=== PATIENT | male | born 1995 | race Caucasian/White ===

== ENCOUNTER 2021-10-02 06:12 | Observation (INO) ==
[2021-10-02 07:08] LABS: Basophils # (auto) 0.04 K/uL (0-0.2); Basophils % (auto) 0.7 %; Eosinophils # (auto) 0.03 K/uL (0-0.5); Eosinophils % (auto) 0.5 %; Hematocrit (blood only) 46.5 % (42-52); Hemoglobin 16.6 g/dL (14.0-18.0); Immature Granulocytes # (auto) 0.01 K/uL (0.00-0.02); Immature Granulocytes % (auto) 0.2 %; Lymphocytes # (auto) 1.25 K/uL (1.2-3.4); Lymphocytes % (auto) 20.5 %; Mean Corpuscular Hemoglobin 31.7 pg (25-34); Mean Corpuscular Hgb Conc 35.7 g/dL (32-36); Mean Corpuscular Volume 88.9 fL (80-100); Mean Platelet Volume 11.5 fL (7.4-10.4); Monocytes # (auto) 1.09 K/uL (0.11-0.59); Monocytes % (auto) 17.8 %; Neutrophils # (auto) 3.69 K/uL (1.4-6.5); Neutrophils % (auto) 60.3 %; Platelet Count 152 K/uL (130-400); RDW Coefficient of Variation 12.4 % (11.5-14.5); RDW Standard Deviation 40.6 fL (36.4-46.3); Red Blood Count 5.23 M/uL (4.7-6.1); White Blood Count 6.11 K/uL (4.8-10.8)
[2021-10-02 07:16] LABS: Alanine Aminotransferase 32 U/L (7-52); Albumin Globulin Ratio 1.3 (0.9-2); Albumin Level 4.4 gm/dl (3.4-5.0); Alkaline Phosphatase 61 U/L (34-104); Anion Gap 8 (3-11); Aspartate Aminotransferase 51 U/L (13-39); Bilirubin,Total 1.9 mg/dl (0.2-1.0); Blood Urea Nitrogen 13 mg/dl (6-23); Calcium 8.9 mg/dl (8.5-10.1); Carbon Dioxide 25 mmol/L (21-32); Chloride 103 mmol/L (98-107); Est GFR (African American) 120.7 ml/min; Est GFR (Non-African American) 104.1 ml/min; Globulin 3.3 gm/dl (2.5-4.0); Glucose 109 mg/dl (70-99(Fasting)); Potassium 3.9 mmol/L (3.5-5.1); Sodium 136 mmol/L (136-145); Total Protein 7.7 gm/dl (6.0-8.3)
[2021-10-02] MEDS ORDERED: KETOROLAC 30 MG/ML VIAL IV STA (07:19)
--- NOTE | 2021-10-02 07:25 | Emergency Department Note ---
Impression & Plan Acute myopericarditis, Elevated troponin, Precordial chest pain ED Provider Note CHIEF COMPLAINT: Left-sided chest pain x2 hours HISTORY OF PRESENT ILLNESS: Patient is a otherwise healthy 26-year-old male who presents emergency department for evaluation of chest pain. He has a remote history of myopericarditis diagnosed when he was 19, likely secondary to viral illness. He was seen and treated here at that time. Patient notes that Friday evening, less than 2 days ago, he developed a headache, sore throat, malaise, subjectively felt feverish and had chills. He did not check his temperature with a thermometer. He tried taking DayQuil and NyQuil. He did not get tested for COVID. Yesterday evening, he noticed some dull, mild left-sided chest discomfort that was on and off. At its worst he would have rated a 3/10. It did not keep him from sleeping. He woke up this morning at 0445, about 2 hours ago, with a more constant 5/10 chest pain that has not gone away. He has not ta lisa anything for his symptoms. He denies any cough or shortness of breath. No pain with deep breathing. He was concerned given his history of pericarditis, and thus presents the emergency department for evaluation. He is vaccinated against COVID x2 (01/2021 and 02/2021), did not receive a flu shot last fall. He denies any recent travel, no calf pain or swelling. Denies any tobacco/nicotine use, no drug use. Drinks about 8 beers a week. REVIEW OF SYSTEMS: Review of systems as per HPI. All other systems reviewed were negative. 10 systems reviewed. PMH: Electronic medical records are reviewed and summarized as above/below. See Problem List. He reports mild seasonal allergies that he uses a nasal spray for as needed. No surgeries. SOCIAL HISTORY: Patient is currently unemployed and lives at home with his family. Drinks 4 beers 2 times a week, denies tobacco/nicotine use, no drug use. PHYSICAL EXAM: Vital Signs: Reviewed Nurse's notes. CONSTITUTIONAL: Patient is a well-appearing 26-year-old male who is awake and alert and sitting upright on the gurney. Mom is at the bedside. EYES: Pupils equal, round, reactive to light and accommodation. EOMs intact without nystagmus. Sclera are anicteric. ENT: Tympanic membranes intact, with normal landmarks. External canals are clear. Oral and nasopharynx are clear. Mucous membranes are moist, no lesions, tongue and gums appear normal. CARDIOVASCULAR: Regular rate and rhythm, no murmur appreciated. Peripheral pulses easy to palpable. RESPIRATORY: Breath sounds equal and clear to auscultation without wheezes, rales, or rhonchi heard. Full and equal chest expansion without accessory muscle use or retractions. GI: Bowel sounds are present. Abdomen is soft, nontender, nondistended. No organomegaly. No pulsatile masses. No guarding or rebound. MUSCULOSKELETAL: Full range of motion of extremities x 4 with good strength. No cyanosis, edema, joint tenderness or swelling. No deformity. INTEGUMENTARY: No lesions or rash, normal skin turgor. NEUROLOGICAL: Alert, oriented, and cooperative. Cranial nerves, sensation and strength grossly intact. LYMPH: No lymphadenopathy. EMERGENCY DEPARTMENT COURSE: The patient was seen and assessed as above. Old records are reviewed, particularly his admission here for pericarditis in 2016. IV lock was initiated, laboratory studies were collected. CBC with differential, CMP, troponin, D-dimer, sed rate, CRP and COVID/flu swab were collected. EKG was obtained, chest x-ray was performed. He was observed on the director of pupil personnel program. He was treated with Toradol IV. Laboratory studies note a normal white count at 6100, no left shift, no bandemia. Sed rate is 14. Electrolytes are within normal limits. Total bilirubin 1.9, AST 51 remainder of transaminases are normal. C-reactive protein slightly elevated at 1.39. High sensitive troponin was elevated at 8561. D- dimer elevated at 610. COVID/influenza/RSV swab is negative. Chest x-ray was clear. EKG revealed a normal sinus rhythm at 91 bpm, with no ST segment changes. Given the elevated D-dimer, chest CT was obtained, was negative for PE. No pericardial effusion noted. Consultation was placed with Dr. Ramirez with [facility] cardiology. He agrees with admission for serial troponins, recommended colchicine, aspirin and an echocardiogram. Consultation was placed with the [facility] hospitalist service for inpatient care, patient was reviewed with Dr. Springer. Please refer to adm ission H&P for further information. Cardiac monitoring: An order was placed for continuous cardiac monitoring. The monitor shows a normal sinus rhythm in the 80s. Past Med/Surg History Medical History Environmental and seasonal allergies Myopericarditis Surgical History No history of previous surgery Family History Grandmother (Paternal) Rheumatic fever Heart valve disease Social History Smoking Status: Never smoker Second Hand Exposure: No; Do You Dip or Chew Tobacco: No; Hx Alcohol Use: Yes Alcohol type: beer Alcohol Intake Frequency: 2-3 x/Week Hx Substance Use: No Preferred Language: Frisian [employer] Server Required: No Beliefs That Will Affect Care: None Current Living Situation: Parent and Family Other Information That Helps Us Care for You: No Feels Safe at Home: Yes Safety Concerns: Feels Safe At This Time Allergies Allergies Allergy/AdvReac Type Severity Reaction Status Date / Time No Known Allergies Allergy Unverified 06/28/15 18:53 Home Meds Home Medications Medication Instructions Recorded Confirmed No Known Home Medications 10/02/21 10/02/21 Results & Data (ED) Vital Signs Vital Signs - 24 hr 10/02/21 06:16 10/02/21 06:18 10/02/21 06:19 Temperature 36.8 C Temperature Source Oral Pulse Rate 96 H 88 Pulse Rate from SpO2 Sensor 89 Respiratory Rate 18 17 Blood Pressure 124/80 124/80 Blood Pressure Mean 94 94 Pulse Oximetry 97 98 Oxygen Delivery Method Room Air Sepsis Recent Fever Within 48 Hours No Sepsis New/Unexplained Change in Mental Status N/A Sepsis Action Taken by Nursing No Action Required 10/02/21 06:20 10/02/21 06:30 10/02/21 06:54 Temperature Temperature Source Pulse Rate 83 Pulse Rate from SpO2 Sensor 83 Respiratory Rate 23 Blood Pressure Blood Pressure Mean Pulse Oximetry 97 97 99 Oxygen Delivery Method Room Air Room Air Sepsis Recent Fever Within 48 Hours Sepsis New/Unexplained Change in Mental Status Sepsis Action Taken by Nursing 10/02/21 06:58 10/02/21 07:00 10/02/21 07:30 Temperature Temperature Source Pulse Rate 92 H 83 83 Pulse Rate from SpO2 Sensor 92 H 82 81 Respiratory Rate 24 23 23 Blood Pressure 124/83 118/75 123/74 Blood Pressure Mean 96 89 90 Pulse Oximetry 98 98 97 Oxygen Delivery Method Sepsis Recent Fever Within 48 Hours Sepsis New/Unexplained Change in Mental Status Sepsis Action Taken by Nursing 10/02/21 08:00 10/02/21 08:27 10/02/21 08:30 Temperature Temperature Source Pulse Rate 79 84 77 Pulse Rate from SpO2 Sensor 78 Respiratory Rate 22 16 21 Blood Pressure 112/72 122/66 115/67 Blood Pressure Mean 85 84 83 Pulse Oximetry 96 Oxygen Delivery Method Sepsis Recent Fever Within 48 Hours Sepsis New/Unexplained Change in Mental Status Sepsis Action Taken by [facility] Medications Current Medication List: was personally reviewed by me Laboratory Data Attestation: I reviewed the patient's lab results. Result diagrams: 10/02/21 06:23 10/02/21 06:23 Lab Results 10/02/21 10/02/21 10/02/21 Range/Units 06:23 06:23 06:23 WBC 6.11 (4.8-10.8) K/uL RBC 5.23 (4.7-6.1) M/uL Hgb 16.6 (14.0-18.0) g/dL Hct 46.5 (42-52) % MCV 88.9 (80-100) fL MCH 31.7 (25-34) pg MCHC 35.7 (32-36) g/dL RDW Std Deviation 40.6 (36.4-46.3) fL RDW Coeff of Chidi 12.4 (11.5-14.5) % Plt Count 152 (130-400) K/uL MPV 11.5 H (7.4-10.4) fL Immature Gran % (Auto) 0.2 % Neut % (Auto) 60.3 % Lymph % (Auto) 20.5 % [place] % (Auto) 17.8 % Eos % (Auto) 0.5 % Baso % (Auto) 0.7 % Neut # (Auto) 3.69 (1.4-6.5) K/uL Lymph # (Auto) 1.25 (1.2-3.4) K/uL [place] # (Auto) 1.09 H (0.11-0.59) K/uL Eos # (Auto) 0.03 (0-0.5) K/uL Baso # (Auto) 0.04 (0-0.2) K/uL Immature Gran # (Auto) 0.01 (0.00-0.02) K/uL ESR (0-15) mm/hr D-Dimer 610 H* (0-500) ug/L FEU Sodium 136 (136-145) mmol/L Potassium 3.9 (3.5-5.1) mmol/L Chloride 103 (98-107) mmol/L Carbon Dioxide 25 (21-32) mmol/L Anion Gap 8 (3-11) BUN 13 (6-23) mg/dl Creatinine 1.00 (0.6-1.4) mg/dl Est Cr Clr Drug Dosing Not Reportable Est GFR ( Amer) 120.7 ml/min Est GFR (Non-Af Amer) 104.1 ml/min BUN/Creatinine Ratio 13.0 (10-20) Glucose 109 H (70-99(Fasting)) mg/dl Calcium 8.9 (8.5-10.1) mg/dl Total Bilirubin 1.9 H (0.2-1.0) mg/dl AST 51 H (13-39) U/L ALT 32 (7-52) U/L Alkaline Phosphatase 61 (34-104) U/L Troponin I High Sens 8561.0 H* (0-20) pg/ml C-Reactive Protein (0-0.5) mg/dl Total Protein 7.7 (6.0-8.3) gm/dl Albumin 4.4 (3.4-5.0) gm/dl Globulin 3.3 (2.5-4.0) gm/dl Albumin/Globulin Ratio 1.3 (0.9-2) SARS-CoV-2 (PCR) (Negative) Influenza Type A (PCR) (Neg) Influenza Type B (PCR) (Neg) RSV (RT-PCR) (Neg) 10/02/21 10/02/21 10/02/21 Range/Units 06:23 06:23 07:25 WBC (4.8-10.8) K/uL RBC (4.7-6.1) M/uL Hgb (14.0-18.0) g/dL Hct (42-52) % MCV (80-100) fL MCH (25-34) pg MCHC (32-36) g/dL RDW Std Deviation (36.4-46.3) fL RDW Coeff of Chidi (11.5-14.5) % Plt Count (130-400) K/uL MPV (7.4-10.4) fL Immature Gran % (Auto) % Neut % (Auto) % Lymph % (Auto) % [place] % (Auto) % Eos % (Auto) % Baso % (Auto) % Neut # (Auto) (1.4-6.5) K/uL Lymph # (Auto) (1.2-3.4) K/uL [place] # (Auto) (0.11-0.59) K/uL Eos # (Auto) (0-0.5) K/uL Baso # (Auto) (0-0.2) K/uL Immature Gran # (Auto) (0.00-0.02) K/uL ESR 14 (0-15) mm/hr D-Dimer (0-500) ug/L FEU Sodium (136-145) mmol/L Potassium (3.5-5.1) mmol/L Chloride (98-107) mmol/L Carbon Dioxide (21-32) mmol/L Anion Gap (3-11) BUN (6-23) mg/dl Creatinine (0.6-1.4) mg/dl Est Cr Clr Drug Dosing Est GFR ( Amer) ml/min Est GFR (Non-Af Amer) ml/min BUN/Creatinine Ratio (10-20) Glucose (70-99(Fasting)) mg/dl Calcium (8.5-10.1) mg/dl Total Bilirubin (0.2-1.0) mg/dl AST (13-39) U/L ALT (7-52) U/L Alkaline Phosphatase (34-104) U/L Troponin I High Sens (0-20) pg/ml C-Reactive Protein 1.39 H (0-0.5) mg/dl Total Protein (6.0-8.3) gm/dl Albumin (3.4-5.0) gm/dl Globulin (2.5-4.0) gm/dl Albumin/Globulin Ratio (0.9-2) SARS-CoV-2 (PCR) NEGATIVE (Negative) Influenza Type A (PCR) Negative (Neg) Influenza Type B (PCR) Negative (Neg) RSV (RT-PCR) Negative (Neg) Administered Medications Sodium Chloride (Nss 1000ml) 1,000 mls @ 80 mls/hr IV .[id number] YONG Stop: 10/03/21 00:21 Last Admin: 10/02/21 12:07 Dose: 80 mls/hr Documented by: [id number] Pantoprazole Sodium (Pantoprazole 40 Mg Tab) 40 mg PO QAM YONG Stop: 11/01/21 12:14 Last Admin: 10/02/21 12:29 Dose: Not Given Documented by: [id number] Discontinued Medications Sodium Chloride (Nss 1000ml) 1,000 mls @ 999 mls/hr IV .[id number] YONG Stop: 10/02/21 08:56 Last Infusion: 10/02/21 09:35 Dose: 0 mls/hr Documented by: [id number] Admin: 10/02/21 08:09 Dose: 999 mls/hr Documented by: [id number] Sodium Chloride (Nss 1000ml) 1,000 mls @ 250 mls/hr IV .Q4H YONG Stop: 11/01/21 07:59 Last Infusion: 10/02/21 12:07 Dose: 0 mls/hr Documented by: [id number] Admin: 10/02/21 10:25 Dose: 250 mls/hr Documented by: [id number] Ioversol (Optiray 320 125ml) 120 ml IV ONCE ONE Stop: 10/02/21 08:27 Last Admin: 10/02/21 08:26 Dose: 120 ml Documented by: [id number] Ketorolac Tromethamine (Ketorolac 30 Mg/Ml Vial) 30 mg IV NOW STA Stop: 10/02/21 07:20 Last Admin: 10/02/21 07:29 Dose: 30 mg Documented by: [id number] Imaging Data Attestation: I personally reviewed and interpreted this imaging study as follows: Radiologist's Impression: Chest X-Ray 10/02/21 06:54 XR chest 1V portable CLINICAL HISTORY: Atypical chest pain TECHNIQUE: Single frontal radiograph of the chest was obtained. Comparison: Comparison is made to chest radiograph 06/28/2015 FINDINGS: No lines and tubes are seen. The cardiomediastinal silhouette is normal. The lungs are clear. No evidence of pleural effusion or pneumothorax. IMPRESSION: No acute chest disease. ACT 112: Negative or not required by law. Electronically signed by: Virgilio Hickey M.D. 10/02/2021 7:31 AM Chest CTA 10/02/21 08:00 CT angio chest PE protocol CLINICAL HISTORY: Chest pain, elevated trop, hx of pericarditis TECHNIQUE: Multidetector row helical CT of the chest was performed with angiographic protocol. Coronal and sagittal reformations were obtained. Coronal and sagittal MIPS were obtained from the axial data set and were submitted for review. Automated dose lowering techniques and/or adjustment according to patient size were utilized for this exam. CT DOSE: 436.07 mGycm Comparison: None available at the time of this dictation. FINDINGS: Lungs and pleura: Normal. Heart and pericardium: Heart size is normal. No pericardial effusion. Vessels: No evidence of pulmonary embolism. Mediastinum and evert: Unremarkable. Chest wall and lower neck: Unremarkable. Abdomen: Unremarkable. Bones: Unremarkable. IMPRESSION: No evidence of pulmonary embolism. ACT 112: Negative or not required by law. Electronically signed by: Virgilio Hickey M.D. 10/02/2021 8:34 AM ECG Data Attestation: I personally reviewed and interpreted this ECG as follows: Indication: + chest pain Rate (beats per minute): 91 Rhythm: normal sinus ECG [place]: + Normal ECG ST segments: + Normal ST segments Comparison ECG Date: from () Change: the following changes noted (ST elevations resolved) Discharge Plan Visit Data Chief Complaint: Chest Pain Stated Complaint: CHEST PAIN ED Provider: Jack Haque ED Midlevel Provider: Jessica Perez Discharge Problem: Acute myopericarditis, Elevated troponin, Precordial chest pain Patient Disposition: Admitted As Inpatient Discharge Instructions Interventions: ED Discharge Assessment Last Done: 10/02/21 09:30
--- NOTE | 2021-10-02 07:32 | XRay Report ---
XR chest 1V portable CLINICAL HISTORY: Atypical chest pain TECHNIQUE: Single frontal radiograph of the chest was obtained. Comparison: Comparison is made to chest radiograph 06/28/2015 FINDINGS: No lines and tubes are seen. The cardiomediastinal silhouette is normal. The lungs are clear. No evid ence of pleural effusion or pneumothorax. IMPRESSION: No acute chest disease. ACT 112: Negative or not required by law. Electronically signed by: Virgilio Hickey M.D. 10/02/2021 7:31 AM
[2021-10-02 07:46] LABS: D Dimer 610 ug/L FEU (0-500)
[2021-10-02] MEDS ORDERED: SODIUM CHLORIDE 0.9% 1000ML 1,000 ML IV SCH ×3 (07:56→11:52)
[2021-10-02 08:25] LABS: Influenza A virus by PCR Negative (Neg); Influenza B virus by PCR Negative (Neg); RSV by PCR Negative (Neg); SARS CoV2 RNA(COVID-19) InHosp NEGATIVE (Negative)
[2021-10-02] MEDS ORDERED: OPTIRAY 320 125ml IV ONE (08:26)
--- NOTE | 2021-10-02 08:36 | CT Scan Report ---
CT angio chest PE protocol CLINICAL HISTORY: Chest pain, elevated trop, hx of pericarditis TECHNIQUE: Multidetector row helical CT of the chest was performed with angiographic protocol. [place] l and sagittal reformations were obtained. Coronal and sagittal MIPS were obtained from the axial cali a set and were submitted for review. Automated dose lowering techniques and/or adjustment according to patient size were utilized for this exam. CT DOSE: 436.07 mGycm Comparison: None available at the time of this dictation. FINDINGS: Lungs and pleura: Normal. Heart and pericardium: Heart size is normal. No pericardial effusion. Vessels: No evidence of pulmonary embolism. Mediastinum and evert: Unremarkable. Chest wall and lower neck: Unremarkable. Abdomen: Unremarkable. Bones: Unremarkable. IMPRESSION: No evidence of pulmonary embolism. ACT 112: Negative or not required by law. Electronically signed by: Virgilio Hickey M.D. 10/02/2021 8:34 AM
--- NOTE | 2021-10-02 08:48 | History & Physical Report ---
Date of Service October 02, 2021 Assessment & Plan (1) Acute myopericarditis: (2) Elevated troponin: Plan: This is a 26-year-old male who has a significant past medical history of pericarditis back in 2015 and is otherwise healthy who presents to ED secondary to chest pain x1 day. L sided chest pain Elevated troponin Acute myopericarditis admit to PCU consult cardiology cycle troponin obtain echocardiogram check lyme titer repeat crp in am. colchicine 0.6mg bid ibuprofen 600mg q8h IVF x 1 L EKG in a.m. Acute URI covid, rsv, influenza negative likely viral supportive care, sx mostly resolved DVT ppx: none Dispo:PCU PCP: None, pt needs to establish upon discharge FULL CODE Pt was seen and examined in collaboration with Dr. Springer, please see addendum History of Present Illness Chief Complaint: Chest pain x 1 day. Primary Care Provider: NO PCP This is a 26-year-old male who has a significant past medical history of pericarditis back in 2015 and is otherwise healthy who presents to ED secondary to chest pain x1 day. Back in 2015 patient was seen and treated at [facility] for acute pericarditis. He had echocardiogram performed which revealed preserved ejection fraction and mild dilated left ventricle. On admission he had elevated troponin and ST elevations diffusely. This improved with treatment of colchicine and anti-inflammatories. He was treated with a 3- month course of colchicine. It was felt likely secondary to viral illness as it preceded his symptoms. Otherwise he has remained healthy and presents to ED today secondary to chest pain that started approximately 1.5 days ago. He also notes approximately 2 days ago on Friday he developed URI symptoms including headache, sore throat, malaise, sweats and chills. He was unable to take his temperature to see if he had a fever. He did try [id number] DayQuil and NyQuil. He is vaccinated for COVID-19 as of 02/2021, but did not receive influenza vaccine. His chest pain started last evening, was substernal, described as a dull left-sided chest discomfort. His pain would come and go. It felt similar to his prior episode of pericarditis. He did not take anything for his symptoms. He was able to fall asleep however at 445 this morning, 2 hours prior to arrival, chest pain became constant, was nonradiating, left-sided and approximately a 5 out of 10. Due to prior history of pericarditis he opted to proceed to ED. He denies any inspiratory chest pain. Chest pain is not made worse with position. He does lift weights 4-5x/wk. Denies tick bite or rash. No other recent illness in last 6-8 weeks. No sick contacts. + COVID-19 03/2020. Lives at home, currently unemployed. In ED patient remained hemodynamically stable. Initial EKG revealed normal sinus rhythm with a heart rate of 91 and T wave inversions inferiorly. Initial troponin was 8561 and CRP elevated at 1.39. He did have mildly elevated D-dimer although CTA was negative for PE. Chest x- ray was also negative for any acute abnormalities. He was treated with IV fluids and IV Toradol. Allergies Allergy/AdvReac Type Severity Reaction Status Date / Time No Known Allergies Allergy Unverified 06/28/15 18:53 Home Medications Medication Instructions Recorded Confirmed Type No Known Home Medications 10/02/21 10/02/21 History Past Med/Surg History Medical History Environmental and seasonal allergies Myopericarditis Surgical History No history of previous surgery Family History Grandmother (Paternal) Rheumatic fever Heart valve disease Social History Smoking Status: Never smoker Second Hand Exposure: No; Do You Dip or Chew Tobacco: No; Hx Alcohol Use: Yes Alcohol type: beer Alcohol Intake Frequency: 2-3 x/Week Hx Substance Use: No Preferred Language: Argentine Clinical Trial Leader Required: No Beliefs That Will Affect Care: None Current Living Situation: Parent and Family Other Information That Helps Us Care for You: No Feels Safe at Home: Yes Safety Concerns: Feels Safe At This Time Review of Systems Review of Systems: All systems reviewed & are unremarkable except as noted in HPI & below Physical Exam Physical Exam: Constitutional: WD/WN, vitals as above, NAD, sitting up in bed, pleasant, conversing easily Head: Normocephalic, Atraumatic Eyes: PERRL, conjunctivae normal, anicteric sclerae ENMT: external ear and nose normal, oropharynx normal Neck: trachea midline, no thyromegaly normal visual inspection Respiratory: normal respiratory effort, lungs clear to auscultation, no wheeze, rales, rhonchi. Normal insp/exp effort, no accessory muscle use Cardiovascular: RRR, no murmur, no rub, no edema Vessels: no JVD or carotid bruit Chest: normal inspection of chest Abdomen: normal bowel sounds, soft, nontender, no hepatosplenomegaly Musculoskeletal: no cyanosis or clubbing, extremities motor strength 5/5 Skin: no rashes, warm and dry normal turgor Neurologic: PERRL, EOMI, accommodation nl, no face palsy, no dysarthria CN's II-XI intact bilaterally and moves all extremities Psychiatric: A+Ox3, euthymic affect Lymphatic: no cervical or axillary lymphadenopathy : deferred Results & Data Results & Data ([facility]) Vital Signs (Past 12 Hours) Vital Signs Temp Pulse Resp BP Pulse Ox 10/02/21 08:30 77 21 115/67 10/02/21 08:27 84 16 122/66 10/02/21 08:00 79 22 112/72 96 10/02/21 07:30 83 23 123/74 97 10/02/21 07:00 83 23 118/75 98 10/02/21 06:58 92 H 24 124/83 98 10/02/21 06:54 99 10/02/21 06:30 83 23 97 10/02/21 06:20 97 10/02/21 06:19 88 17 98 10/02/21 06:18 124/80 10/02/21 06:16 36.8 C 96 H 18 124/80 97 Diagnostic Findings Chest X-Ray 10/02/21 06:54 XR chest 1V portable CLINICAL HISTORY: Atypical chest pain TECHNIQUE: Single frontal radiograph of the chest was obtained. Comparison: Comparison is made to chest radiograph 06/28/2015 FINDINGS: No lines and tubes are seen. The cardiomediastinal silhouette is normal. The lungs are clear. No evidence of pleural effusion or pneumothorax. IMPRESSION: No acute chest disease. ACT 112: Negative or not required by law. Electronically signed by: Virgilio Hickey M.D. 10/02/2021 7:31 AM Chest CTA 10/02/21 08:00 CT angio chest PE protocol CLINICAL HISTORY: Chest pain, elevated trop, hx of pericarditis TECHNIQUE: Multidetector row helical CT of the chest was performed with angiographic protocol. Coronal and sagittal reformations were obtained. Coronal and sagittal MIPS were obtained from the axial data set and were submitted for review. Automated dose lowering techniques and/or adjustment according to patient size were utilized for this exam. CT DOSE: 436.07 mGycm Comparison: None available at the time of this dictation. FINDINGS: Lungs and pleura: Normal. Heart and pericardium: Heart size is normal. No pericardial effusion. Vessels: No evidence of pulmonary embolism. Mediastinum and evert: Unremarkable. Chest wall and lower neck: Unremarkable. Abdomen: Unremarkable. Bones: Unremarkable. IMPRESSION: No evidence of pulmonary embolism. ACT 112: Negative or not required by law. Electronically signed by: Virgilio Hickey M.D. 10/02/2021 8:34 AM Medications Administered Medication List Sodium Chloride (Nss 1000ml) 1,000 mls @ 999 mls/hr IV .Q1H1M YONG Stop: 10/02/21 08:56 Last Admin: 10/02/21 08:09 Dose: 999 mls/hr Documented by: [id number] Discontinued Medications Ioversol (Optiray 320 125ml) 120 ml IV ONCE ONE Stop: 10/02/21 08:27 Last Admin: 10/02/21 08:26 Dose: 120 ml Documented by: [id number] Ketorolac Tromethamine (Ketorolac 30 Mg/Ml Vial) 30 mg IV NOW STA Stop: 10/02/21 07:20 Last Admin: 10/02/21 07:29 Dose: 30 mg Documented by: [id number] ECG Rate (beats per minute): 91 Rhythm: normal sinus Findings: + T-wave inversion (III and AVF) COVID-19 Results Results COVID-19 Adm Lab Results: RBC 5.23 M/uL (4.7-6.1) 10/02/21 WBC 6.11 K/uL (4.8-10.8) 10/02/21 Hgb 16.6 g/dL (14.0-18.0) 10/02/21 Hct 46.5 % (42-52) 10/02/21 Plt Count 152 K/uL (130-400) 10/02/21 Neutrophils (%) (Auto) 60.3 % 10/02/21 Lymphocytes (%) (Auto) 20.5 % 10/02/21 Monocytes # (Auto) 1.09 K/uL (0.11-0.59) H 10/02/21 Eosinophils # (Auto) 0.03 K/uL (0-0.5) 10/02/21 Immature Granulocyte % (Auto) 0.2 % 10/02/21 Neutrophils # (Auto) 3.69 K/uL (1.4-6.5) 10/02/21 Lymphocytes # (Auto) 1.25 K/uL (1.2-3.4) 10/02/21 Monocytes # (Auto) 1.09 K/uL (0.11-0.59) H 10/02/21 Eosinophils # (Auto) 0.03 K/uL (0-0.5) 10/02/21 Basophils # (Auto) 0.04 K/uL (0-0.2) 10/02/21 Immature Granulocyte # (Auto) 0.01 K/uL (0.00-0.02) 10/02/21 Na 136 mmol/L (136-145) 10/02/21 K 3.9 mmol/L (3.5-5.1) 10/02/21 Cl 103 mmol/L (98-107) 10/02/21 CO2 25 mmol/L (21-32) 10/02/21 Anion Gap 8 (3-11) 10/02/21 BUN 13 mg/dl (6-23) 10/02/21 Creatinine 1.00 mg/dl (0.6-1.4) 10/02/21 BUN/Creatinine Ratio 13.0 (10-20) 10/02/21 Glucose Level 109 mg/dl (70-99(Fasting)) H 10/02/21 Ca 8.9 mg/dl (8.5-10.1) 10/02/21 Total Bilirubin 1.9 mg/dl (0.2-1.0) H 10/02/21 Direct Bilirubin 0.2 mg/dl (0-0.2) 10/02/21 AST/SGOT 51 U/L (13-39) H 10/02/21 ALT/SGPT 32 U/L (7-52) 10/02/21 Alkaline Phosphatase 61 U/L (34-104) 10/02/21 Total Protein 7.7 gm/dl (6.0-8.3) 10/02/21 Albumin 4.4 gm/dl (3.4-5.0) 10/02/21 Globulin 3.3 gm/dl (2.5-4.0) 10/02/21 Albumin/Globulin Ratio 1.3 (0.9-2) 10/02/21 CRP 1.39 mg/dl (0-0.5) H 10/02/21 D-Dimer 610 ug/L FEU (0-500) H* 10/02/21 COVID-19 PCR NEGATIVE (Negative) 10/02/21 Influenza Virus Type A (PCR) Negative (Neg) 10/02/21 Influenza Virus Type B (PCR) Negative (Neg) 10/02/21 Chest X-Ray 10/02/21 Code Status & VTE Plan Code Status FULL CODE VTE Prophylaxis Plan VTE Prophylaxis will be ordered: No Supervising Physician Co-Signing Physician Notes Patient is a 26-year-old male with history of pericarditis presents with history of headache, sore throat, malaise, chills, diaphoresis associated with left- sided chest discomfort since 2 days duration. Please review HPI for complete details of presentation. He denies any recent tick bite, rash. Admits to having tick bite in the past. On exam patient is well-built and nourished, no apparent distress, normocephalic atraumatic, EOMI, normal breath sounds, clear to auscultation, S1-S2, no murmur, no pedal edema, abdomen soft, nontender, normal bowel sounds, alert, awake, oriented, grossly no focal deficits. Blood work suggestive of D-dimer 610, glucose 109, total bilirubin 1.9, AST 51, elevated troponin, CRP 1.39. Lyme screen, JAHAIRA, Anaplasmosis screen pending. CTA showed no evidence of pulmonary embolism. Echo is essentially normal study, EF 55 to 60%. EKG showed normal sinus rhythm, nonspecific T wave abnormality. Patient is admitted for management of acute myopericarditis. Started on ibuprofen, colchicine. Appreciate cardiology input. Given Lyme IgM equivocal, start on doxycycline empirically for now. Monitor LFTs. I personally reviewed the record. Patient is interviewed and examined at bedside. Patient's care is coordinated with Layla Roy PA-C. Please refer to the documentation above for details of patient's presentation and for discussion of other issues.
[2021-10-02 09:13] LABS: Bilirubin Direct 0.2 mg/dl (0-0.2)
[2021-10-02 09:21] LABS: Troponin I High Sensitivity 9362.3 pg/ml (0-20)
--- NOTE | 2021-10-02 10:18 | Cardiology Consultation ---
Date of Consultation October 02, 2021 Assessment & Plan (1) Precordial chest pain: (2) Elevated troponin: (3) Acute myopericarditis: Chest pain in the setting of recent viral illness. Trops elevated. Dimer elevated but CT of chest negative for PE. Patient carries a history of myopericarditis. No friction rub auscultated on exam. EKG stable no ST changes. Symptoms are suspicious for myopericarditis, but physical exam is not forthcoming- may have caught symptoms early. 1. Echo to be obtained- further recommendations pending results. Future consideration for cMRI 2. Spoke with hospitalist, Dr. Springer- agree with starting colchicine and ibuprofen- will also benefit from GI prophylaxis, recommend addition of omeprazole. Case discussed with Dr. Ramirez. Supervising Physician Co-Signing Physician Notes I have seen and examined the patient. I reviewed the medical record and discussed the case with the nurse practitioner. I agree with the plan as outlined above. I will review the echocardiogram when completed. I agree with colchicine and ibuprofen for now. History of Present Illness Reason for Consultation: Chest pain Requesting Physician: Gómez kirk History of Present Illness 26-year-old male presenting to the emergency department due to complaints of chest discomfort. On Friday patient developed upper respiratory infection symptoms including a headache, sore throat, malaise, diaphoresis and chills. Unknown if he had a fever. Later that evening he started to develop dull left- sided chest discomfort that was intermittent. He tried to sleep it off. Pain eventually worsened and is now constant, nonradiating, left-sided. Rated it a 6/10. Treated with IV fluids and dose of Toradol. Since getting the Toradol he has noticed and improvement in his pain (3/10). He denies any exertional chest pain, did notice a slight increase in the discomfort when moving from laying to sitting. Denies a cough. No dyspnea. No palpitations, dizziness, or syncope. No orthopnea, PND, or lower extremity edema. He is normally very active. works out at the gym. Non smoker, occasional social alcohol use- last drink was Friday, had 2-3 beers. No further URI symptoms. Vaccinated with x2 [employer] vaccines, no booster. Viral panel negative. Patient carries a history of pericarditis dating back to 2016. He is concerned because his symptoms are very similar to his prior episode. At this time he had an echocardiogram which revealed a preserved LVEF with a mildly dilated left ventricle. ST elevations diffusely noted on EKG with an elevated troponin. He was then treated with a 3-month course of colchicine and anti-inflammatories and made a full recovery. It was felt that this episode was secondary to a viral illness. He has had multiple viral illness since 2016- but no further chest pain symptoms till now. This admission: EKG showed normal sinus rhythm, [address] changes Troponin elevated at 8561.0>>9362.3 D-dimer elevated at 610 CT of the chest negative for PE, no evidence of pericardial effusion. CRP elevated 1.39 COVID-negative. Flu A&B negative. RSV negative. Tele: SR 60-70s Past medical history: -Pericarditis secondary to viral illness, 2016 -COVID-19 positive, 03/2020 Allergies Allergy/AdvReac Type Severity Reaction Status Date / Time No Known Allergies Allergy Unverified 06/28/15 18:53 Home Medications Medication Instructions Recorded Confirmed Type No Known Home Medications 10/02/21 10/02/21 History Patient History Medical History Environmental and seasonal allergies Myopericarditis Surgical History No history of previous surgery Family History (Updated 10/02/21 @ 09:32 by Layla Roy PA-C) Grandmother (Paternal) Rheumatic fever Heart valve disease Social History (Updated 10/02/21 @ 08:43 by Layla Roy PA-C) Smoking Status: Never smoker Second Hand Exposure: No; Do You Dip or Chew Tobacco: No; Hx Alcohol Use: Yes Alcohol type: beer Alcohol Intake Frequency: 2-3 x/Week Hx Substance Use: No Preferred Language: Frisian Avionics Mechanic Required: No Beliefs That Will Affect Care: None Current Living Situation: Parent and Family Other Information That Helps Us Care for You: No Feels Safe at Home: Yes Safety Concerns: Feels Safe At This Time Review of Systems Review of Systems: All systems reviewed & are unremarkable except as noted in HPI & below Physical Exam Constitutional: well developed, well nourished and average body habitus; no acute distress Eyes: PERRL, conjunctivae normal, anicteric sclerae ENMT: external ear and nose normal, oropharynx normal Respiratory: normal respiratory effort, lungs clear to auscultation no cough and not tachypneic Auscultation: + rales; no crackles, no rhonchi, no wheezes and no pleural rub Cardiovascular: Rate/Rhythm: regular rate and regular rhythm Heart Sounds: normal S1 and normal S2; no murmur and no cardiac rub Vessels: radial pulses present; no JVD Chest (Breasts): Chest: normal inspection of chest Gastrointestinal (Abdomen): normal bowel sounds, soft, nontender, no hepatosplenomegaly Musculoskeletal: no cyanosis or clubbing, extremities motor strength 5/5 Gait: normal gait Skin: no rashes, warm and dry Psychiatric: Orientation: alert, oriented x 3 and cooperative Results & Data ([facility]) Vital Signs (Past 12 Hours) Vital Signs Temp Pulse Resp BP Pulse Ox 10/02/21 09:00 79 19 116/75 10/02/21 08:30 77 21 115/67 10/02/21 08:27 84 16 122/66 10/02/21 08:00 79 22 112/72 96 10/02/21 07:30 83 23 123/74 97 10/02/21 07:00 83 23 118/75 98 10/02/21 06:58 92 H 24 124/83 98 10/02/21 06:54 99 10/02/21 06:30 83 23 97 10/02/21 06:20 97 10/02/21 06:19 88 17 98 10/02/21 06:18 124/80 10/02/21 06:16 36.8 C 96 H 18 124/80 97 Laboratory Results Cardiac Enzymes 10/02/21 10/02/21 Range/Units 06:23 08:40 AST 51 H (13-39) U/L Troponin I High Sens 8561.0 H* 9362.3 H* (0-20) pg/ml CBC 10/02/21 Range/Units 06:23 WBC 6.11 (4.8-10.8) K/uL RBC 5.23 (4.7-6.1) M/uL Hgb 16.6 (14.0-18.0) g/dL Hct 46.5 (42-52) % Plt Count 152 (130-400) K/uL Neut # (Auto) 3.69 (1.4-6.5) K/uL Lymph # (Auto) 1.25 (1.2-3.4) K/uL [place] # (Auto) 1.09 H (0.11-0.59) K/uL Eos # (Auto) 0.03 (0-0.5) K/uL Baso # (Auto) 0.04 (0-0.2) K/uL Comprehensive Metabolic Panel 10/02/21 10/02/21 Range/Units 06:23 08:40 Sodium 136 (136-145) mmol/L Potassium 3.9 (3.5-5.1) mmol/L Chloride 103 (98-107) mmol/L Carbon Dioxide 25 (21-32) mmol/L BUN 13 (6-23) mg/dl Creatinine 1.00 (0.6-1.4) mg/dl Glucose 109 H (70-99(Fasting)) mg/dl Calcium 8.9 (8.5-10.1) mg/dl Direct Bilirubin 0.2 (0-0.2) mg/dl AST 51 H (13-39) U/L ALT 32 (7-52) U/L Alkaline Phosphatase 61 (34-104) U/L Total Protein 7.7 (6.0-8.3) gm/dl Albumin 4.4 (3.4-5.0) gm/dl Intake and Output 10/01/21 10/02/21 10/02/21 22:59 06:59 14:59 Intake Total 1000 / 1000 Balance 1000 / 1000 Intake: IV 1000 / 1000 Sodium Chloride 0.9% 1000ML 1, 1000 / 1000 000 ml @ 999 mls/hr IV .Q1H1M [facility] Rx#:[id number] Other: Weight 77.5 kg 77.5 kg Weight Measurement Method Built in Bedscale Built in Bedscale Patient Weight 10/03/21 06:59 Weight 77.5 kg
[2021-10-02] MEDS ORDERED: ALUMINUM/MAGNESIUM SUSP 30 ML UDC PO PRN (11:52)
[2021-10-02] MEDS ORDERED: POLYETHYLENE (MIRALAX) 17 GM PACK PO PRN (11:52)
[2021-10-02] MEDS ORDERED: ONDANSETRON INJ 2 MG/ML 2 ML VIAL IV PRN (11:52)
[2021-10-02] MEDS ORDERED: ACETAMINOPHEN 325 MG TAB PO PRN (11:52)
[2021-10-02] MEDS ORDERED: MAGNESIUM HYDROXIDE SUSP 30 ML UDC PO PRN (11:52)
[2021-10-02] MEDS: PANTOprazole 40 MG TAB PO SCH (12:29)
[2021-10-02] MEDS: COLCHICINE 0.6 MG TAB PO SCH ×2 (13:10→20:11)
[2021-10-02] MEDS: IBUPROFEN 600 MG TAB PO SCH ×2 (13:10→21:14)
--- NOTE | 2021-10-02 14:53 | Electrocardiogram Report ---
Test Reason : Blood Pressure : / mmHG Vent. Rate : 091 BPM Atrial Rate : 091 BPM P-R Int : 130 ms QRS Dur : 086 ms QT Int : 344 ms P-R-T Axes : 021 039 000 degrees QTc Int : 423 ms Normal sinus rhythm Nonspecific T wave abnormality Abnormal ECG When compared with ECG of 01-JUL-2015 07:01, T wave inversion no longer evident in Lateral leads Confirmed by Andrés Danielle ([id number]) on 10/02/2021 2:53:19 PM Referred By: REFERRED SELF Confirmed By:Andrés Danielle
[2021-10-02 15:49] LABS: Lyme Ab IgG w/WB Rflx Negative (Negative)
[2021-10-02 15:57] LABS: Lyme Ab IgM w/WB Rflx Equivocal (Negative)
[2021-10-02] MEDS: cefTRIAXone SODIUM 1,000 MG in DEXTROSE 5% 50 ML IV SCH (18:30)
[2021-10-02] MEDS ORDERED: DOXYCYCLINE HYCLATE 100 MG CAP PO SCH (21:00)
[2021-10-02] MEDS ORDERED: KETOROLAC TROMETHAMINE 15 MG/ML VIAL IV ONE (21:23)
[2021-10-02] MEDS ORDERED: oxyCODONE HCL IR 5 MG TAB (IMMEDIATE RELEASE) PO PRN (22:12)
[2021-10-02] MEDS ORDERED: NITROGLYCERIN SL 0.4 MG/TAB TAB SL STA (22:12)
[2021-10-02] MEDS ORDERED: MoRPHine SULFATE 2 MG/ML CARP IV PRN (22:12)
--- NOTE | 2021-10-02 22:39 | Communication Note ---
Date of Service: October 02, 2021 9 PM Patient complained of chest pain 6/10. No relief with Toradol. Chest pain relieved by nitroglycerin. EKG as per my interpretation: Rate 75, NSR, normal axis, ST elevation lateral leads, T wave normalities inferior leads trop 11K (from 9K) AP Chest pain relieved by nitro Ongoing treatment for pericarditis Abnormal EKG ? Ischemic component to chest pain Dr. Ramirez (skill labor on-call) updated of developments. EKGs transmitted via [place] text. EKG consistent with pericarditis as per Dr. Ramirez.
[2021-10-03] MEDS: IBUPROFEN 600 MG TAB PO SCH ×3 (05:54→21:26)
[2021-10-03 06:42] LABS: Hematocrit (blood only) 44.8 % (42-52); Hemoglobin 15.3 g/dL (14.0-18.0); Mean Corpuscular Hemoglobin 30.5 pg (25-34); Mean Corpuscular Hgb Conc 34.2 g/dL (32-36); Mean Corpuscular Volume 89.2 fL (80-100); Mean Platelet Volume 11.3 fL (7.4-10.4); Platelet Count 136 K/uL (130-400); RDW Coefficient of Variation 12.9 % (11.5-14.5); RDW Standard Deviation 41.9 fL (36.4-46.3); Red Blood Count 5.02 M/uL (4.7-6.1); White Blood Count 4.01 K/uL (4.8-10.8)
[2021-10-03 07:11] LABS: Albumin Globulin Ratio 1.4 (0.9-2); Albumin Level 3.9 gm/dl (3.4-5.0); BUN Creatinine Ratio 13.8 (10-20); Bilirubin,Total 1.6 mg/dl (0.2-1.0); C Reactive Protein 2.5 mg/dl (0-0.5); Calcium 8.6 mg/dl (8.5-10.1); Chol HDL Ratio 3.6 (0-5); Globulin 2.7 gm/dl (2.5-4.0); Magnesium 2.1 mg/dl (1.7-2.4); Potassium 4.6 mmol/L (3.5-5.1); Total Protein 6.6 gm/dl (6.0-8.3)
[2021-10-03 07:22] LABS: ALC (manual) 1.12 K/uL (1.2-3.4); ANC (manual) 2.25 K/uL (1.4-6.5); Eosinophils # (manual) 0.04 K/uL (0-0.5); Eosinophils % (manual) 0.9 %; Lymphocytes # (manual) 0.56 K/uL (1.2-3.4); Monocytes % (manual) 14.9 %; Neutrophils # (manual) 2.25 K/uL (1.4-6.5); Neutrophils % (manual) 56.2 %; Reactive Lymphocytes # (manual) 0.56 K/uL
[2021-10-03] MEDS: SODIUM CHLORIDE 0.9% 1000ML 1,000 ML IV SCH ×2 (09:09→18:40)
[2021-10-03] MEDS: PANTOprazole 40 MG TAB PO SCH (09:10)
[2021-10-03] MEDS: COLCHICINE 0.6 MG TAB PO SCH ×2 (09:10→21:49)
--- NOTE | 2021-10-03 09:41 | Cardiology Progress Note ---
Date of Service October 03, 2021 Assessment & Plan (1) Precordial chest pain: (2) Elevated troponin: (3) Acute myopericarditis: Plan: The patient's chest pain has improved with colchicine and ibuprofen. Consideration should be given to a cardiac MRI. Unfortunately, currently we have no local options and the patient would have to go to [facility] to have the MRI completed. Admission and Anticipated Discharge Date Admission Date: October 02, 2021 Subjective The patient's chest pain is markedly improved today. Review of Systems Review of Systems: Review of Systems: See HPI for pertinent positives. All other 10 point review of systems are negative. Physical Exam Physical Exam: General: no acute distress and stated age Head: normocephalic, no masses, lesions, tenderness or abnormalities Eyes: conjunctiva are pink and non-injected, sclera clear Neck: supple, no adenopathy, no bruits, normal jugular venous pulse, no hepatojugular reflux Chest: normal shape and normal respiratory effort Lungs: clear to auscultation and percussion Cardiac Exam: - regular rate & rhythm, no murmurs gallops or rubs - normal S1, normal S2 Pulses: 2(+) throughout Abdomen: abdomen soft, non-tender, no abnormal masses and no hepatosplenomegaly Musculoskeletal: no gait disturbance, no joint inflammation, no deforming arthritis Extremities: no edema and no cyanosis Neuro: grossly normal exam Results & Data ([facility]) Vital Signs (Past 12 Hours) Vital Signs Temp Pulse Pulse Resp BP Pulse Ox 10/03/21 07:16 36.9 C 82 16 103/61 98 10/03/21 03:00 36.5 C 64 18 111/58 L 99 10/02/21 23:00 36.8 C 84 18 117/77 95 10/02/21 22:33 97/74 L 10/02/21 22:19 62 Laboratory Results Laboratory Results - last 24 hr 10/02/21 10/02/21 10/02/21 13:57 13:57 13:57 WBC RBC Hgb Hct MCV MCH MCHC RDW Std Deviation RDW Coeff of Chidi Plt Count MPV Neutrophils % (Manual) Lymphocytes % (Manual) Reactive Lymphs % (Man) Monocytes % (Manual) Eosinophils % (Manual) Neutrophils # (Manual) Total Absolute Neuts Lymphocytes # (Manual) Reactive Lymphs # Total Abs Lymphocytes Monocytes # (Manual) Eosinophils # (Manual) ESR 9 Sodium Potassium Chloride Carbon Dioxide Anion Gap BUN Creatinine Est Cr Clr Drug Dosing Est GFR ( Amer) Est GFR (Non-Af Amer) BUN/Creatinine Ratio Glucose Calcium Magnesium Total Bilirubin AST ALT Alkaline Phosphatase Troponin I High Sens 9429.9 H* C-Reactive Protein Total Protein Albumin Globulin Albumin/Globulin Ratio Triglycerides Cholesterol LDL Cholesterol, Calc VLDL Cholesterol, Calc HDL Cholesterol Cholesterol/HDL Ratio JAHAIRA Screen Anaplasma Smear Lyme Disease IgG Ab Negative Lyme IgG (Western Blot) Lyme IgG 18 kDa Band Lyme IgG 23 kDa Band Lyme IgG 28 kDa Band Lyme IgG 30 kDa Band Lyme IgG 39 kDa Band Lyme IgG 41 kDa Band Lyme IgG 45 kDa Band Lyme IgG 58 kDa Band Lyme IgG 66 kDa Band Lyme IgG 93 kDa Band Lyme IgM Ab (WB) Lyme Disease IgM Ab Equivocal A Lyme IgM 23 kDa Band Lyme IgM 39 kDa Band Lyme IgM 41 kDa Band 10/02/21 10/02/21 10/02/21 13:57 13:57 13:57 WBC RBC Hgb Hct MCV MCH MCHC RDW Std Deviation RDW Coeff of Chidi Plt Count MPV Neutrophils % (Manual) Lymphocytes % (Manual) Reactive Lymphs % (Man) Monocytes % (Manual) Eosinophils % (Manual) Neutrophils # (Manual) Total Absolute Neuts Lymphocytes # (Manual) Reactive Lymphs # Total Abs Lymphocytes Monocytes # (Manual) Eosinophils # (Manual) ESR Sodium Potassium Chloride Carbon Dioxide Anion Gap BUN Creatinine Est Cr Clr Drug Dosing Est GFR ( Amer) Est GFR (Non-Af Amer) BUN/Creatinine Ratio Glucose Calcium Magnesium Total Bilirubin AST ALT Alkaline Phosphatase Troponin I High Sens C-Reactive Protein Total Protein Albumin Globulin Albumin/Globulin Ratio Triglycerides Cholesterol LDL Cholesterol, Calc VLDL Cholesterol, Calc HDL Cholesterol Cholesterol/HDL Ratio JAHAIRA Screen Pending Anaplasma Smear See Comment Lyme Disease IgG Ab Lyme IgG (Western Blot) Pending Lyme IgG 18 kDa Band Pending Lyme IgG 23 kDa Band Pending Lyme IgG 28 kDa Band Pending Lyme IgG 30 kDa Band Pending Lyme IgG 39 kDa Band Pending Lyme IgG 41 kDa Band Pending Lyme IgG 45 kDa Band Pending Lyme IgG 58 kDa Band Pending Lyme IgG 66 kDa Band Pending Lyme IgG 93 kDa Band Pending Lyme IgM Ab (WB) Pending Lyme Disease IgM Ab Lyme IgM 23 kDa Band Pending Lyme IgM 39 kDa Band Pending Lyme IgM 41 kDa Band Pending 10/02/21 10/03/21 10/03/21 19:31 06:17 06:17 WBC 4.01 L RBC 5.02 Hgb 15.3 Hct 44.8 MCV 89.2 MCH 30.5 MCHC 34.2 RDW Std Deviation 41.9 RDW Coeff of Chidi 12.9 Plt Count 136 MPV 11.3 H Neutrophils % (Manual) 56.2 Lymphocytes % (Manual) 14.0 Reactive Lymphs % (Man) 14.0 Monocytes % (Manual) 14.9 Eosinophils % (Manual) 0.9 Neutrophils # (Manual) 2.25 Total Absolute Neuts 2.25 Lymphocytes # (Manual) 0.56 L Reactive Lymphs # 0.56 Total Abs Lymphocytes 1.12 L Monocytes # (Manual) 0.60 H Eosinophils # (Manual) 0.04 ESR Sodium 139 Potassium 4.6 Chloride 108 H Carbon Dioxide 28 Anion Gap 3 BUN 12 Creatinine 0.87 Est Cr Clr Drug Dosing 134.0 Est GFR ( Amer) 139.0 Est GFR (Non-Af Amer) 120.0 BUN/Creatinine Ratio 13.8 Glucose 96 Calcium 8.6 Magnesium 2.1 Total Bilirubin 1.6 H AST 79 H ALT 37 Alkaline Phosphatase 51 Troponin I High Sens 01286.4 H* D C-Reactive Protein 2.50 H Total Protein 6.6 Albumin 3.9 Globulin 2.7 Albumin/Globulin Ratio 1.4 Triglycerides 55 Cholesterol 107 LDL Cholesterol, Calc 66 VLDL Cholesterol, Calc 11 HDL Cholesterol 30 Cholesterol/HDL Ratio 3.6 JAHAIRA Screen Anaplasma Smear Lyme Disease IgG Ab Lyme IgG (Western Blot) Lyme IgG 18 kDa Band Lyme IgG 23 kDa Band Lyme IgG 28 kDa Band Lyme IgG 30 kDa Band Lyme IgG 39 kDa Band Lyme IgG 41 kDa Band Lyme IgG 45 kDa Band Lyme IgG 58 kDa Band Lyme IgG 66 kDa Band Lyme IgG 93 kDa Band Lyme IgM Ab (WB) Lyme Disease IgM Ab Lyme IgM 23 kDa Band Lyme IgM 39 kDa Band Lyme IgM 41 kDa Band Medications Administered Current Inpatient Medications Acetaminophen (Acetaminophen 325 Mg Tab) 650 mg PO Q4H PRN PRN Reason: Pain or Fever Stop: 11/01/21 11:51 Last Admin: 10/02/21 21:14 Dose: 650 mg Documented by: Al Hydrox/Mg Hydrox/Simethicone (Aluminum/Magnesium Susp 30 Ml Udc) 15 ml PO Q4H PRN PRN Reason: Dyspepsia Stop: 11/01/21 11:51 Colchicine (Colchicine 0.6 Mg Tab) 0.6 mg PO BID [facility] Stop: 11/01/21 11:51 Last Admin: 10/03/21 09:10 Dose: 0.6 mg Documented by: Ceftriaxone Sodium 1,000 mg/ (Dextrose) 60 mls @ 100 mls/hr IV Q24H [facility]; Protocol Stop: 10/12/21 17:59 Last Infusion: 10/02/21 19:44 Dose: Infused Documented by: Sodium Chloride (Nss 1000ml) 1,000 mls @ 100 mls/hr IV .Q10H [facility] Stop: 11/02/21 08:29 Last Admin: 10/03/21 09:09 Dose: 100 mls/hr Documented by: Ibuprofen (Ibuprofen 600 Mg Tab) 600 mg PO Q8H [facility] Stop: 11/01/21 13:59 Last Admin: 10/03/21 05:54 Dose: 600 mg Documented by: Magnesium Hydroxide (Magnesium Hydroxide Susp 30 Ml Udc) 30 ml PO Q12H PRN PRN Reason: Constipation Stop: 11/01/21 11:51 Morphine Sulfate (Morphine Sulfate 2 Mg/Ml Carp) 2 mg IV Q3H PRN PRN Reason: Pain Stop: 10/16/21 22:11 Ondansetron HCl (Ondansetron Inj 2 Mg/Ml 2 Ml Vial) 4 mg IV Q6H PRN PRN Reason: Nausea Stop: 11/01/21 11:51 Oxycodone HCl (Oxycodone Hcl Ir 5 Mg Tab (Immediate Release)) 5 - 10 mg PO QID PRN PRN Reason: Pain Stop: 10/16/21 22:11 Last Admin: 10/02/21 22:38 Dose: 5 mg Documented by: Pantoprazole Sodium (Pantoprazole 40 Mg Tab) 40 mg PO QAM [facility] Stop: 11/01/21 12:14 Last Admin: 10/03/21 09:10 Dose: 40 mg Documented by: Polyethylene Glycol (Polyethylene (Miralax) 17 Gm Pack) 17 gm PO DAILY PRN PRN Reason: Constipation Stop: 11/01/21 11:51
--- NOTE | 2021-10-03 13:39 | Electrocardiogram Report ---
Test Reason : Blood Pressure : / mmHG Vent. Rate : 075 BPM Atrial Rate : 075 BPM P-R Int : 144 ms QRS Dur : 084 ms QT Int : 370 ms P-R-T Axes : 027 006 000 degrees QTc Int : 413 ms Normal sinus rhythm ST elevation, consider early repolarization, pericarditis, or injury Abnormal ECG When compared with ECG of 02-OCT-2021 06:19, No significant change was found Confirmed by Andrés Danielle ([id number]) on 10/03/2021 1:38:56 PM Referred By: REFERRED SELF Confirmed By:Andrés Danielle
--- NOTE | 2021-10-03 13:59 | Electrocardiogram Report ---
Test Reason : Blood Pressure : / mmHG Vent. Rate : 073 BPM Atrial Rate : 073 BPM P-R Int : 146 ms QRS Dur : 094 ms QT Int : 414 ms P-R-T Axes : 024 019 014 degrees QTc Int : 456 ms Normal sinus rhythm ST elevation, consider early repolarization, pericarditis, or injury Abnormal ECG When compared with ECG of 02-OCT-2021 06:19, T wave inversion now evident in Anterior leads Confirmed by Andrés Danielle ([id number]) on 10/03/2021 1:58:53 PM Referred By: REFERRED SELF Confirmed By:Andrés Danielle
--- NOTE | 2021-10-03 18:06 | Hospitalist Progress Note ---
Date of Service October 03, 2021 Assessment & Plan (1) Acute myopericarditis: (2) Elevated troponin: Plan: per admitting service notes with addendum: This is a 26-year-old male who has a significant past medical history of pericarditis back in 2016 and is otherwise healthy who presents to ED secondary to chest pain x1 day. L sided chest pain Elevated troponin Acute myopericarditis admit to PCU consult cardiology cycle troponin obtain echocardiogram check lyme titer repeat crp in am. colchicine 0.6mg bid ibuprofen 600mg q8h IVF x 1 L EKG in a.m. 10/03 troponin increased to 11k EKG with mild st elevation clinically, patient improving with initiation of Colchicine and Ibuprofen obtain trop today discussed with Dr. Ramirez, unlikely ACS Acute URI covid, rsv, influenza negative likely viral supportive care, sx mostly resolved DVT ppx: none Dispo:PCU PCP: None, pt needs to establish upon discharge FULL CODE plan of care discussed with patient and his aunt in detail and at length all questions answered they are understanding, agreeable, comfortable with the plan of care Admission and Anticipated Discharge Date Admission Date: October 02, 2021 Subjective ff up for myocarditis, etc seen resting in bed, sitting up comfortable, not in distress patient's aunt at the bedside states he feels better overall left sided localized sharp chest pain much better- now 1 -2/10 no headache, dizziness, cough, abdominal pain, nausea/vomiting, chills no other symptoms Review of Systems Review of Systems: all noted and negative except for above Physical Exam Physical Exam: General- oriented x 3, not in distress, speaks in sentences with no effort or accessory muscle use Head- atraumatic Eyes- PERRL, EOMI, anicteric ENT- oropharynx clear Neck- supple, no JVD, no adenopathy, no thyromegaly; carotids +2/2, no bruits appreciated Lungs- clear to auscultation bilaterally, no rales/wheezes Heart- normal rate, regular rhythm; no murmur, no gallop, no rub appreciated Abdomen- normal bowel sounds, nondistended, soft, nontender, no masses or hepatosplenomegaly Extremities- no pretibial edema, no calf tenderness; peripheral pulses intact Neuro- alert, oriented x 3; CN 2-12 grossly intact; motor 5/5 bilaterally;sensation 100% on all extremities; no other gross focal neurologic deficits Skin- warm & dry Results & Data Results & Data ([facility]) Vital Signs (Past 12 Hours) Vital Signs Temp Pulse Resp BP Pulse Ox 10/03/21 15:14 36.6 C 93 H 18 108/60 98 10/03/21 12:24 36.7 C 82 17 110/59 L 98 10/03/21 07:16 36.9 C 82 16 103/61 98 all noted and reviewed including below
[2021-10-03] MEDS: cefTRIAXone SODIUM 1,000 MG in DEXTROSE 5% 50 ML IV SCH (18:25)
[2021-10-04] MEDS: SODIUM CHLORIDE 0.9% 1000ML 1,000 ML IV SCH ×2 (04:37→14:39)
[2021-10-04] MEDS: IBUPROFEN 600 MG TAB PO SCH ×3 (06:15→20:32)
--- NOTE | 2021-10-04 08:23 | Cardiology Progress Note ---
Date of Service October 04, 2021 Assessment & Plan (1) Precordial chest pain: (2) Elevated troponin: (3) Acute myopericarditis: Plan: Case discussed with Dr. Ramirez. Lyme titer IgM equivocal, IgG negative- awaiting western blot results The patient's chest pain has improved with colchicine and ibuprofen. Consideration should be given to a cardiac MRI. Unfortunately, currently we have no local options and the patient [place] have [place] [facility] [place]. Given improved symptoms will plan on completing cMRI as an outpatient. Admission and Anticipated Discharge Date Admission Date: October 02, 2021 Supervising Physician Co-Signing Physician Notes I agree the patient can be discharged to outpatient follow-up. We will arrange that follow-up including a cardiac MRI. Subjective Chart and telemetry reviewed. Currently on Ibuprofen and Colchicine. Upon entrance into the room patient resting comfortably in bed without concern. Chest pain free yesterday. Did have one mild/brief episode of discomfort this morning prior to his medications and breakfast. Pain has since resolved. No shortness of breath. Tele: SR 70s Trops peaked at 11,651 and now 7530 this am. Lyme titer IGM equivocal- awaiting western blot. IgG negative Review of Systems Review of Systems: All systems reviewed & are unremarkable except as noted in HPI & below Review of Systems: See HPI for pertinent positives. All other 10 point review of systems are negative. Physical Exam Constitutional: well developed, well nourished and average body habitus; no acute distress Eyes: PERRL, conjunctivae normal, anicteric sclerae ENMT: external ear and nose normal, oropharynx normal Respiratory: normal respiratory effort, lungs clear to auscultation no cough and not tachypneic Auscultation: + rales; no crackles, no rhonchi, no wheezes and no pleural rub Cardiovascular: Rate/Rhythm: regular rate and regular rhythm Heart Sounds: normal S1 and normal S2; no murmur and no cardiac rub Vessels: radial pulses present; no JVD Chest (Breasts): Chest: normal inspection of chest Gastrointestinal (Abdomen): normal bowel sounds, soft, nontender, no hepatosplenomegaly Musculoskeletal: no cyanosis or clubbing, extremities motor strength 5/5 Gait: normal gait Skin: no rashes, warm and dry Psychiatric: Orientation: alert, oriented x 3 and cooperative Results & Data ([place]) Vital Signs (Past 12 Hours) Vital Signs Temp Pulse Pulse Resp BP Pulse Ox 10/04/21 07:46 36.5 C 74 18 114/65 98 10/04/21 03:00 36.6 C 78 14 140/95 99 10/03/21 23:00 37.1 C 54 L 18 149/79 H 99 10/03/21 22:00 61 Laboratory Results Cardiac Enzymes 10/03/21 Range/Units 19:43 Troponin I High Sens 7530.2 H* D (0-20) pg/ml Intake and Output 10/03/21 10/04/21 10/04/21 22:59 06:59 14:59 Intake Total 300 / 2780 1480 / 2780 Balance 300 / 2780 1480 / 2780 Intake: IV 60 / 2060 1000 / 2060 Sodium Chloride 0.9% 1000ML 1, 0 / 1000 1000 / 1000 000 ml @ 100 mls/hr IV .Q10H [facility] Rx#:[id number] cefTRIAXone SODIUM 1,000 mg In 60 / 60 Dextrose 5% 50 ml @ 100 mls/hr IV Q24H [facility] Rx#:[id number] Oral 240 / 720 480 / 720 Other: Weight 76.7 kg Weight Measurement Method Built in [facility]
[2021-10-04] MEDS: COLCHICINE 0.6 MG TAB PO SCH ×2 (08:36→20:31)
[2021-10-04] MEDS: PANTOprazole 40 MG TAB PO SCH (08:36)
[2021-10-04 09:57] LABS: Basophils # (auto) 0.06 K/uL (0-0.2); Basophils % (auto) 1.9 %; Eosinophils # (auto) 0.05 K/uL (0-0.5); Eosinophils % (auto) 1.6 %; Hematocrit (blood only) 42.1 % (42-52); Hemoglobin 14.8 g/dL (14.0-18.0); Lymphocytes # (auto) 1.23 K/uL (1.2-3.4); Lymphocytes % (auto) 38.4 %; Mean Corpuscular Hemoglobin 31.4 pg (25-34); Mean Corpuscular Hgb Conc 35.2 g/dL (32-36); Mean Corpuscular Volume 89.4 fL (80-100); Mean Platelet Volume 11.5 fL (7.4-10.4); Monocytes % (auto) 12.5 %; Neutrophils # (auto) 1.46 K/uL (1.4-6.5); Neutrophils % (auto) 45.6 %; Platelet Count 131 K/uL (130-400); RDW Coefficient of Variation 12.6 % (11.5-14.5); Red Blood Count 4.71 M/uL (4.7-6.1)
[2021-10-04 10:05] LABS: BUN Creatinine Ratio 13.3 (10-20); C Reactive Protein 1.69 mg/dl (0-0.5); Calcium 8.3 mg/dl (8.5-10.1); Creatinine Clr Calc Pharmacy 155.5 ml/min; Est GFR (African American) 147.8 ml/min; Est GFR (Non-African American) 127.5 ml/min
[2021-10-04 10:14] LABS: Troponin I High Sensitivity 4860.1 pg/ml (0-20)
[2021-10-04 12:26] LABS: Anti Nuclear Antibody Screen NEGATIVE (NEGATIVE)
--- NOTE | 2021-10-04 16:20 | Hospitalist Progress Note ---
Date of Service October 04, 2021 Assessment & Plan (1) Acute myopericarditis: (2) Elevated troponin: Plan: per admitting service notes with addendum: This is a 26-year-old male who has a significant past medical history of pericarditis back in 2016 and is otherwise healthy who presents to ED secondary to chest pain x1 day. L sided chest pain Elevated troponin Acute myopericarditis admit to PCU consult cardiology cycle troponin obtain echocardiogram check lyme titer repeat crp in am. colchicine 0.6mg bid ibuprofen 600mg q8h IVF x 1 L EKG in a.m. 10/04 troponin increased to 11k, trending down, now 4006 CRP trending down EKG with mild st elevation clinically, patient continues to improve with initiation of Colchicine and Ibuprofen discussed with Dr. Ramirez, unlikely ACS Continue colchicine and ibuprofen Outpatient cardiac MRI Follow-up Lyme Western blot results Acute URI covid, rsv, influenza negative likely viral supportive care, sx mostly resolved DVT ppx: none Dispo:PCU PCP: None, pt needs to establish upon discharge FULL CODE plan of care discussed with patient all questions answered He is understanding, agreeable, comfortable with the plan of care Admission and Anticipated Discharge Date Admission Date: October 02, 2021 Subjective Follow-up for acute myocarditis, etc. Seen sitting up in bed, awake, alert, comfortable States he feels better today Chest pain around 1-2, resolving mostly No dizziness, shortness of breath, palpitations, fevers or chills, myalgias or arthralgias, headaches No other symptoms Review of Systems Review of Systems: all noted and negative except for above Physical Exam Physical Exam: General- oriented x 3, not in distress, speaks in sentences with no effort or accessory muscle use Eyes- anicteric Neck- no JVD Lungs- clear BS bilaterally, no rales/wheezes Heart- normal rate, regular rhythm; no murmurs No pericardial rub noted Abdomen- normal bowel sounds, nondistended, soft, nontender Extremities- no pretibial edema, no calf tenderness Neuro- alert, oriented x 3; no gross focal neurologic deficits Skin- warm & dry Results & Data Results & Data ([facility]) Vital Signs (Past 12 Hours) Vital Signs Temp Pulse Pulse Resp BP Pulse Ox 10/04/21 15:36 78 10/04/21 11:52 37.2 C 70 18 108/66 98 10/04/21 09:37 74 10/04/21 07:46 36.5 C 74 18 114/65 98 all noted and reviewed including below
[2021-10-04] MEDS: cefTRIAXone SODIUM 1,000 MG in DEXTROSE 5% 50 ML IV SCH (17:42)
[2021-10-05] MEDS: SODIUM CHLORIDE 0.9% 1000ML 1,000 ML IV SCH (03:05)
[2021-10-05] MEDS: IBUPROFEN 600 MG TAB PO SCH (06:04)
[2021-10-05 06:26] LABS: Hematocrit (blood only) 42.8 % (42-52); Hemoglobin 15.1 g/dL (14.0-18.0); Mean Corpuscular Hemoglobin 31.2 pg (25-34); Mean Corpuscular Hgb Conc 35.3 g/dL (32-36); Mean Corpuscular Volume 88.4 fL (80-100); Mean Platelet Volume 11.2 fL (7.4-10.4); Platelet Count 149 K/uL (130-400); RDW Coefficient of Variation 12.6 % (11.5-14.5); RDW Standard Deviation 40.2 fL (36.4-46.3); Red Blood Count 4.84 M/uL (4.7-6.1); White Blood Count 4.34 K/uL (4.8-10.8)
[2021-10-05 06:48] LABS: BUN Creatinine Ratio 15.5 (10-20); Calcium 8.5 mg/dl (8.5-10.1); Creatinine Clr Calc Pharmacy 138.8 ml/min; Est GFR (Non-African American) 121.7 ml/min; Potassium 4.5 mmol/L (3.5-5.1)
[2021-10-05 06:50] LABS: ALC (manual) 1.55 K/uL (1.2-3.4); Eosinophils # (manual) 0.04 K/uL (0-0.5); Eosinophils % (manual) 0.9 %; Lymphocytes # (manual) 0.74 K/uL (1.2-3.4); Monocytes # (manual) 0.35 K/uL (0.11-0.59); Neutrophils % (manual) 55.3 %; RBC Morphology Unremarkable; Reactive Lymphocytes # (manual) 0.82 K/uL; Reactive Lymphocytes % (manual) 18.8 %
--- NOTE | 2021-10-05 08:12 | Cardiology Progress Note ---
Date of Service October 05, 2021 Assessment & Plan (1) Precordial chest pain: (2) Elevated troponin: (3) Acute myopericarditis: Plan: Case discussed with Dr. Ramirez. Lyme titer IgM equivocal, IgG negative- awaiting western blot results The patient's chest pain has improved with colchicine and ibuprofen. Recommend reduction to ibuprofen to 400mg TID at discharge- will follow up in 2 weeks as an outpatient a slowly taper NSAID. Consideration should be given to a cardiac MRI. Unfortunately, currently we have no local options and the patient would have to go to [facility] [place] to have the MRI completed. Given improved symptoms will plan on completing cMRI as an outpatient- will arrange. Okay to discharge from a cardiology standpoint. Admission and Anticipated Discharge Date Admission Date: October 02, 2021 Supervising Physician Co-Signing Physician Notes I have seen the patient previously and performed an exam. I discussed the case with the nurse practitioner today. I agree the patient can be discharged. We can see the patient as an outpatient in 2 weeks and adjust his NSAIDs and other medications. We will also arrange for a follow-up cardiac MRI as an outpatient. Subjective Chart and telemetry reviewed. Currently on Ibuprofen and Colchicine. Upon entrance into the room patient resting comfortably in bed without concern. Chest pain free. No shortness of breath. Tele: SR 70s Trops peaked at 11,651 and now 4860.1 Lyme titer IGM equivocal- awaiting western blot. IgG negative Review of Systems Review of Systems: All systems reviewed & are unremarkable except as noted in HPI & below Review of Systems: See HPI for pertinent positives. All other 10 point review of systems are negative. Physical Exam Constitutional: well developed, well nourished and average body habitus; no acute distress Eyes: PERRL, conjunctivae normal, anicteric sclerae ENMT: external ear and nose normal, oropharynx normal Respiratory: normal respiratory effort, lungs clear to auscultation no cough and not tachypneic Auscultation: + rales; no crackles, no rhonchi, no wheezes and no pleural rub Cardiovascular: Rate/Rhythm: regular rate and regular rhythm Heart Sounds: normal S1 and normal S2; no murmur and no cardiac rub Vessels: radial pulses present; no JVD Chest (Breasts): Chest: normal inspection of chest Gastrointestinal (Abdomen): normal bowel sounds, soft, nontender, no hepato splenomegaly Musculoskeletal: no cyanosis or clubbing, extremities motor strength 5/5 Gait: normal gait Skin: no rashes, warm and dry Psychiatric: Orientation: alert, oriented x 3 and cooperative Results & Data ([facility]) Vital Signs (Past 12 Hours) Vital Signs Temp Pulse Pulse Resp BP Pulse Ox 10/05/21 07:38 62 10/05/21 07:00 37.0 C 73 17 116/67 92 10/05/21 04:34 36.0 C L 72 18 107/74 98 10/04/21 23:13 36.6 C 63 18 121/61 95 10/04/21 22:17 66 Laboratory Results Cardiac Enzymes 10/04/21 Range/Units 09:19 Troponin I High Sens 4860.1 H* D (0-20) pg/ml CBC 10/04/21 10/05/21 Range/Units 09:19 05:44 WBC 3.20 L 4.34 L (4.8-10.8) K/uL RBC 4.71 4.84 (4.7-6.1) M/uL Hgb 14.8 15.1 (14.0-18.0) g/dL Hct 42.1 42.8 (42-52) % Plt Count 131 149 (130-400) K/uL Neut # (Auto) 1.46 (1.4-6.5) K/uL Lymph # (Auto) 1.23 (1.2-3.4) K/uL Boundary # (Auto) 0.40 (0.11-0.59) K/uL Eos # (Auto) 0.05 (0-0.5) K/uL Baso # (Auto) 0.06 (0-0.2) K/uL Comprehensive Metabolic Panel 10/04/21 10/05/21 Range/Units 09:19 05:44 Sodium 140 137 (136-145) mmol/L Potassium 4.0 4.5 (3.5-5.1) mmol/L Chloride 109 H 108 H (98-107) mmol/L Carbon Dioxide 26 24 (21-32) mmol/L BUN 10 13 (6-23) mg/dl Creatinine 0.75 0.84 (0.6-1.4) mg/dl Glucose 105 H 97 (70-99(Fasting)) mg/dl Calcium 8.3 L 8.5 (8.5-10.1) mg/dl Intake and Output 10/04/21 10/05/21 10/05/21 22:59 06:59 14:59 Intake Total 120 / 2857.5 1387.5 / 2857.5 Output Total / Balance 120 / 2855.5 1385.5 / 2855.5 Intake: IV 120 / 2007.5 887.5 / 2007.5 Sodium Chloride 0.9% 1000ML 1, 60 / 1947.5 887.5 / 1947.5 000 ml @ 75 mls/hr IV .[id number] [facility] Rx#:[id number] cefTRIAXone SODIUM 1,000 mg In 60 / 60 Dextrose 5% 50 ml @ 100 mls/hr IV Q24H [facility] Rx#:[id number] Oral 500 / 850 Output: Urine 2 / 2 Other: # Unmeasured Voids 1 Weight 76.7 kg Weight Measurement Method Built in [facility]
[2021-10-05] MEDS: COLCHICINE 0.6 MG TAB PO SCH (09:07)
[2021-10-05] MEDS: PANTOprazole 40 MG TAB PO SCH (09:07)
--- NOTE | 2021-10-05 10:48 | Hospitalist Progress Note ---
Date of Service October 05, 2021 delayed entry date of service noted above Assessment & Plan (1) Acute myopericarditis: (2) Elevated troponin: Plan: per admitting service notes with addendum: This is a 26-year-old male who has a significant past medical history of peric arditis back in 2016 and is otherwise healthy who presents to ED secondary to chest pain x1 day. L sided chest pain Elevated troponin Acute myopericarditis admit to PCU consult cardiology cycle troponin obtain echocardiogram check lyme titer repeat crp in am. colchicine 0.6mg bid ibuprofen 600mg q8h IVF x 1 L EKG in a.m. 10/05 troponin increased to 11k, trended down to 4000s CRP trending down EKG with mild st elevation clinically, patient improved significantly with Colchicine and Ibuprofen discussed with Dr. Ramirez, unlikely ACS d/c plan: colchicine 06mg BID and ibuprofen taper: 600mg TID x 3 days, 400mg BID x 1 week, etc then stop Protonix while on Ibuprofen empiric Doxycycline BID until final Lyme Western Blot and Anaplasmosis screen results are available Outpatient cardiac MRI follow up with Cardiology in 2 weeks Follow-up Lyme Western blot and Final Anaplasmosis screen results repeat BMP next week to monitor renal function while on Ibuprofen taper Acute URI covid, rsv, influenza negative likely viral supportive care, sx mostly resolved Disposition d/c home ff up with PCP in 1 week ff up with Telephone Interceptor Operator in 2 weeks plan of care discussed with patient all questions answered He is understanding, agreeable, comfortable with the plan of care Admission and Anticipated Discharge Date Admission Date: October 02, 2021 Subjective ff up for acute myopericarditis, etc seen resting in bed, comfortable sitting up in good spirits states he feels much better overall chest pain resolved no dyspnea, palpitations, dizziness, fever/chills, headache no other symptoms states he is ready for discharge Review of Systems Review of Systems: all noted and negative except for above Physical Exam Physical Exam: General- oriented x 3, not in distress, speaks in sentences with no effort or accessory muscle use Eyes- anicteric Neck- no JVD Lungs- clear BS BL Heart- normal rate, regular rhythm; no murmurs Abdomen- normal bowel sounds, nondistended, soft, nontender Extremities- no pretibial edema, no calf tenderness Neuro- alert, oriented x 3; no gross focal neurologic deficits Skin- warm & dry Results & Data Results & Data ([facility]) Vital Signs (Past 12 Hours) Vital Signs Temp Pulse Pulse Resp BP Pulse Ox 10/05/21 07:38 62 10/05/21 07:00 37.0 C 73 17 116/67 92 10/05/21 04:34 36.0 C L 72 18 107/74 98 10/04/21 23:13 36.6 C 63 18 121/61 95 all noted and reviewed including below
--- NOTE | 2021-10-05 15:55 | Electrocardiogram Report ---
Test Reason : Blood Pressure : / mmHG Vent. Rate : 070 BPM Atrial Rate : 070 BPM P-R Int : 136 ms QRS Dur : 092 ms QT Int : 382 ms P-R-T Axes : 012 044 007 degrees QTc Int : 412 ms Normal sinus rhythm Nonspecific T wave abnormality Abnormal ECG When compared with ECG of 03-OCT-2021 05:41, T wave inversion more evident in Inferior leads Nonspecific T wave abnormality now evident in Lateral leads Confirmed by Andrés Danielle ([id number]) on 10/05/2021 3:55:23 PM Referred By: REFERRED SELF Confirmed By:Andrés Danielle
[2021-10-06 02:36] LABS: 18KDIGG Band NON-REACTIVE; 23KDIGG Band NON-REACTIVE; 23KDIGM Band NON-REACTIVE; 28KDIGG Band NON-REACTIVE; 30KDIGG Band NON-REACTIVE; 39KDIGG Band NON-REACTIVE; 39KDIGM Band NON-REACTIVE; 41KDIGG Band REACTIVE; 41KDIGM Band NON-REACTIVE; 45KDIGG Band NON-REACTIVE; 58KDIGG Band NON-REACTIVE; 66KDIGG Band NON-REACTIVE; 93KDIGG Band NON-REACTIVE; Lyme Antibodies, WB IgG NEGATIVE (NEGATIVE); Lyme Antibodies, WB IgM NEGATIVE (NEGATIVE)
--- NOTE | 2021-10-09 07:43 | Discharge Summary ---
Date of Service October 09, 2021 Admission HPI Per Admitting Provider This is a 26-year-old male who has a significant past medical history of pericarditis back in 2015 and is otherwise healthy who presents to ED secondary to chest pain x1 day. Back in 2016 patient was seen and treated at [facility] for acute pericarditis. He had echocardiogram performed which revealed preserved ejection fraction and mild dilated left ventricle. On admission he had elevated troponin and ST elevations diffusely. This improved with treatment of colchicine and anti-inflammatories. He was treated with a 3- month course of colchicine. It was felt likely secondary to viral illness as it preceded his symptoms. Otherwise he has remained healthy and presents to ED today secondary to chest pain that started approximately 1.5 days ago. He also notes approximately 2 days ago on Friday he developed URI symptoms including headache, sore throat, malaise, sweats and chills. He was unable to take his temperature to see if he had a fever. He did try [id number] DayQuil and NyQuil. He is vaccinated for COVID-19 as of 02/2021, but did not receive influenza vaccine. His chest pain started last evening, was substernal, described as a dull left-sided chest discomfort. His pain would come and go. It felt similar to his prior episode of pericarditis. He did not take anything for his symptoms. He was able to fall asleep however at 445 this morning, 2 hours prior to arrival, chest pain became constant, was nonradiating, left-sided and approximately a 5 out of 10. Due to prior history of pericarditis he opted to proceed to ED. He denies any inspiratory chest pain. Chest pain is not made worse with position. He does lift weights 4-5x/wk. Denies tick bite or rash. No other recent illness in last 6-8 weeks. No sick contacts. + COVID-19 03/2020. Lives at home, currently unemployed. In ED patient remained hemodynamically stable. Initial EKG revealed normal sinus rhythm with a heart rate of 91 and T wave inversions inferiorly. Initial troponin was 8561 and CRP elevated at 1.39. He did have mildly elevated D-dimer although CTA was negative for PE. Chest x- ray was also negative for any acute abnormalities. He was treated with IV fluids and IV Toradol. Admission Exam Per Admitting Provider Physical Exam: Constitutional: WD/WN, vitals as above, NAD, sitting up in bed, pleasant, conversing easily Head: Normocephalic, Atraumatic Eyes: PERRL, conjunctivae normal, anicteric sclerae ENMT: external ear and nose normal, oropharynx normal Neck: trachea midline, no thyromegaly normal visual inspection Respiratory: normal respiratory effort, lungs clear to auscultation, no wheeze, rales, rhonchi. Normal insp/exp effort, no accessory muscle use Cardiovascular: RRR, no murmur, no rub, no edema Vessels: no JVD or carotid bruit Chest: normal inspection of chest Abdomen: normal bowel sounds, soft, nontender, no hepatosplenomegaly Musculoskeletal: no cyanosis or clubbing, extremities motor strength 5/5 Skin: no rashes, warm and dry normal turgor Neurologic: PERRL, EOMI, accommodation nl, no face palsy, no dysarthria CN's II-XI intact bilaterally and moves all extremities Psychiatric: A+Ox3, euthymic affect Lymphatic: no cervical or axillary lymphadenopathy : deferred Principal Diagnosis ACUTE MYOPERICARDITIS LIKELY SECONDARY TO RECENT UPPER RESPIRATORY VIRAL ILLNESS Discharge Exam General- oriented x 3, not in distress, speaks in sentences with no effort or accessory muscle use Eyes- anicteric Neck- no JVD Lungs- clear BS BL Heart- normal rate, regular rhythm; no murmurs Abdomen- normal bowel sounds, nondistended, soft, nontender Extremities- no pretibial edema, no calf tenderness Neuro- alert, oriented x 3; no gross focal neurologic deficits Skin- warm & dry Discharge Data Allergies Allergy/AdvReac Type Severity Reaction Status Date / Time No Known Allergies Allergy Unverified 06/28/15 18:53 Consultations 10/02/21 08:12 ED Decision to Admit Stat 10/02/21 08:34 Consult Cardiology Routine Ordered Studies 10/02/21 08:00 CT angio chest PE protocol Stat FINDINGS: Lungs and pleura: Normal. Heart and pericardium: Heart size is normal. No pericardial effusion. Vessels: No evidence of pulmonary embolism. Mediastinum and evert: Unremarkable. Chest wall and lower neck: Unremarkable. Abdomen: Unremarkable. Bones: Unremarkable. IMPRESSION: No evidence of pulmonary embolism. ACT 112: Negative or not required by law. Hospital Course (1) Acute myopericarditis: (2) Elevated troponin: per admitting service notes with addendum: This is a 26-year-old male who has a significant past medical history of pericarditis back in 2016 and is otherwise healthy who presents to ED secondary to chest pain x1 day. L sided chest pain Elevated troponin Acute myopericarditis admit to PCU consult cardiology cycle troponin obtain echocardiogram check lyme titer repeat crp in am. colchicine 0.6mg bid ibuprofen 600mg q8h IVF x 1 L EKG in a.m. 10/05 troponin increased to 11k, trended down to 4000s CRP trending down EKG with mild st elevation clinically, patient improved significantly with Colchicine and Ibuprofen discussed with Dr. Ramirez, unlikely ACS d/c plan: colchicine 06mg BID and ibuprofen taper: 600mg TID x 3 days, 400mg BID x 1 week, etc then stop Protonix while on Ibuprofen empiric Doxycycline BID until final Lyme Western Blot and Anaplasmosis screen results are available Outpatient cardiac MRI follow up with Cardiology in 2 weeks Follow-up Lyme Western blot and Final Anaplasmosis screen results repeat BMP next week to monitor renal function while on Ibuprofen taper Acute URI covid, rsv, influenza negative likely viral supportive care, sx mostly resolved Disposition d/c home ff up with PCP in 1 week ff up with [employer] Machine Operator in 2 weeks plan of care discussed with patient all questions answered He is understanding, agreeable, comfortable with the plan of care Total Time Total Time Spent Total Time Spent (In Minutes): >30 MINUTES Discharge Plan Discharge Items Patient Disposition: Home - Self-Care Reason For Visit: CHEST PAIN, ELEVATED TROPONIN Discharge Diagnosis: ACUTE MYOPERICARDITIS Activity: As commented below Activity Comment: INCREASE GRADUALLY TOLERATED, NO HEAVY EXERTION Lifting: Wait until after follow-up appointment Exercise/Sports: Wait until after follow-up appointment Driving/Machine Use: NO DRIVING UNTIL RE-EVALUATED AND ALLOWED BY PRIMARY CARE PHYSICIAN Non-emergency contact: Primary Care Provider Call non-emergency contact if: you have any medication questions, your symptoms worsen, your pain is not controlled, your pain is worsening, your pain is unusual for you, your pain is concerning for you and you have a fever Follow-up/Referrals: Trent Ramirez DO [[employer] Machine Operator] - (Date & Time 10/24/2021 10:00 AM Provider Trent Ramirez DO Department Cardiology, [facility] [address], [place] [address] ) Ignacio Talavera MD [Hospitalist] - (Date & Time 10/10/2021 11:20 AM Provider Ignacio Talavera MD Department Family Medicine [address] [place] [address] ) Diet: Regular Addtl Attending Provider Instructions: PLEASE REFER TO YOUR NEW MEDICATION LIST AND FOLLOW INSTRUCTIONS CAREFULLY. YOUR NEW MEDICATIONS INCLUDE: COLCHICINE- antiinflammatory for acute myopericarditis IBUPROFEN- antiinflammatory for acute myopericarditis (always take with a full stomach) to be tapered off as follows: 600mg 3x a day for 3 days, then 400MG 2x a day for 7 days, then 200mg 2x a day for 7 days, then STOP DOXYCYCLINE - for possible Lyme Disease PROTONIX- antacid to prevent gastritis or ulcer while taking Ibuprofen always take 30 minutes before breakfast Drink plenty of water daily (7-8 glasses per day) to prevent kidney injury while taking Ibuprofen. PLEASE CALL YOUR PRIMARY CARE PHYSICIAN OR RETURN TO THE ER IF WITH WORSENING OF SYMPTOMS, INCLUDING CHEST PAIN, SHORTNESS OF BREATH, DIZZINESS, ETC. FOLLOW UP WITH PRIMARY CARE PHYSICIAN IN 1 WEEK OUTLINED ABOVE. FOLLOW UP WITH [facility] IN 2 WEEKS OUTLINED ABOVE. Pending Studies at Discharge: Yes Studies:: repeat bloodwork - basic metabolic profile- on follow up with PCP next week Stand-Alone Forms: My [facility] [employer], Smoking Cessation Medications and DC Order Prescriptions: New ibuprofen 200 mg capsule 200 mg PO UD Qty: 60 RF: 0 pantoprazole 40 mg Tablet,Delayed Release (Dr/Ec) 40 mg PO QAM Qty: 30 RF: 0 colchicine [Colcrys] 0.6 mg Tablet 0.6 mg PO BID 30 Days Qty: 60 RF: 0 doxycycline hyclate 100 mg capsule 100 mg PO BID 10 Days Qty: 20 RF: 0 Discharge Orders: Discharge Order (Routine); Ordered 10/05/21 Ordered By: Imtiaz Lombardi Admission Data Admit Date/Time: 10/02/21 08:34 Attending Provider: Imtiaz Lombardi Admit Provider: Rashawn Springer Primary Care Provider: PCP,NO Other Providers: Trent Ramirez ; Rashawn Springer Other Interventions: Discharge Summary Assessment (RN) Last Done: 10/05/21 10:58
== END 2021-10-05 12:02 | disposition home or self-care (01) | DRG 316 ==
LOC: ED 06:12 → SUATTDRO 08:34 → INTOOBSV 08:34 → 2E 08:34